=== PATIENT | female | born 2000 | race Caucasian/White ===

== ENCOUNTER 2025-01-21 01:05 | Emergency (ER) | payer MEDICAID ==
[~2025-01-21] VITALS: Ht 154.9 cm; Wt 62.3 kg
[2025-01-21 01:14] VITALS: O2SAT 99
[2025-01-21 01:23] VITALS: BP 155/100; PULSE 104; RESP 16; TEMP 37.1; O2SAT 98
== END 2025-01-21 05:29 | disposition left against medical advice (07) ==
LOC: ER 01:05
DX: F10.129 Alcohol abuse with intoxication, unspecified (principal); F41.9 Anxiety disorder, unspecified; Z53.21 Procedure and treatment not carried out due to patient leaving prior to being seen by health care provider; Z98.890 Other specified postprocedural states
CPT/HCPCS: Z7610 ×2